=== PATIENT | female | born 1990 | race African-American/Black ===

== ENCOUNTER 2025-07-04 08:33 | Emergency (ER) | payer SELFPAY ==
[2025-07-04 09:11] LABS: #Basophils Less than 0.03 10x3/uL (0.0-0.2); #Eosinophils 0.09 10x3/uL (0.0-0.7); #Monocytes 0.81 10x3/uL (0.11-0.59); #Neutrophils 8.92 10x3/uL (1.40-6.50); %Basophils 0.2 % (0.0-1.0); %Eosinophils 0.8 % (0.0-10.0); %Lymphocytes 12.8 % (21.0-51.0); %Monocytes 7.2 % (0.0-10.0); %Neutrophils 78.7 % (42.0-75.0); Hematocrit 29.7 % (36.0-47.0); Hemoglobin 9.1 g/dL (12.0-16.0); Mean Corpuscular Hemoglobin 26.5 pg (27.0-31.0); Mean Corpuscular Volume 86.3 fL (78.0-98.0); Platelet Count 379 10x3/uL (130-400); Red Blood Cell (RBC) Count 3.44 mill/uL (4.20-5.40); White Blood Cell (WBC) Count 11.32 10x3/uL (4.8-10.8)
[2025-07-04] MEDS ORDERED: Metoclopramide HCl 10 MG (2 mL) VIAL ONE (09:30)
[2025-07-04 09:34] LABS: ALT (SGPT) 20 U/L (Less than 34); AST (SGOT) 24 U/L (11-34); Albumin 3.5 g/dL (3.1-4.5); Alkaline Phosphatase 106 U/L (40-110); Anion Gap 13 mmol/L (10-20); BUN (Urea Nitrogen) 13 mg/dL (7.0-18.7); Bilirubin, Total 0.2 mg/dL (0.3-1.2); Calc. Creatinine Clearance 0 mL/min (70-130); Calcium 9.0 mg/dL (7.8-10.44); Carbon Dioxide 26 mmol/L (22-29); Chloride 104 mmol/L (98-107); Globulin 3.9 g/dL (2.4-3.5); Glucose 117 mg/dL (70-105); Potassium 3.6 mmol/L (3.5-5.1); Sodium 139 mmol/L (136-145)
[2025-07-04 09:42] LABS: Acetaminophen Less than 10 mcg/mL (Less than 10); Salicylate Less than 8.0 mg/dL (Less than 8.0)
[2025-07-04 10:18] LABS: Cocaine Metabolite Screen Negative (Negative); THC/Cannabinoid Screen Negative (Negative); Tricyclic Screen PRELIM POSITIVE (Negative)
[2025-07-04 10:20] LABS: Pregnancy Test - Urine (BHCG) Negative (Negative); Pregu Control Background? CLEAR/WHITE (CLR/WHITE); Pregu Control Bar Appear? YES (CONTROL BAR)
[2025-07-04 10:24] LABS: CAUTI Indications for Culture Pelvic or flank pain; Glucose, Urine (Dipstick) 200 mg/dL (Negative); Leukocyte 250 Leu/uL (Negative); Protein, Urine (Dipstick) Negative (Neg-Trace); RBC/HPF 0-3 HPF (0-3); Specific Gravity, Urine 1.017 (1.002-1.036)
[2025-07-04 10:26] LABS: Bacteria/HPF 1+ HPF (None Seen)
[2025-07-04 10:27] LABS: Urine Culture Reflex Yes Yes
[2025-07-04] MEDS ORDERED: Buprenorphine HCl 2 MG SL TAB ONE (10:57)
== END 2025-07-04 13:26 ==
LOC: ERS 08:33
DX: F11.23 Opioid dependence with withdrawal (principal); R55 Syncope and collapse; R56.9 Unspecified convulsions; I10 Essential (primary) hypertension; E11.9 Type 2 diabetes mellitus without complications
CPT/HCPCS: 70450; 80053; 80306; 80307; 81001; 81025; 83605; 85025; 87086; 93005; 96361; 96365; J0571; J2765

== ENCOUNTER 2025-07-15 08:45 | Emergency (ER) | payer OTHER ==
[2025-07-15 09:23] LABS: Bacteria/HPF None Seen HPF (None Seen); CAUTI Indications for Culture Dysuria,urgency,freq; Glucose, Urine (Dipstick) 100 mg/dL (Negative); Leukocyte Negative Leu/uL (Negative); Protein, Urine (Dipstick) Negative (Neg-Trace); RBC/HPF None Seen HPF (0-3); Specific Gravity, Urine 1.010 (1.002-1.036); WBC/HPF 0-3 HPF (0-3)
[2025-07-15 09:27] LABS: Urine Culture Reflex No No
[2025-07-15 09:29] LABS: #Basophils Less than 0.03 10x3/uL (0.0-0.2); #Eosinophils 0.17 10x3/uL (0.0-0.7); #Monocytes 0.63 10x3/uL (0.11-0.59); #Neutrophils 6.57 10x3/uL (1.40-6.50); %Basophils 0.2 % (0.0-1.0); %Eosinophils 1.9 % (0.0-10.0); %Lymphocytes 16.6 % (21.0-51.0); %Monocytes 7.1 % (0.0-10.0); %Neutrophils 73.8 % (42.0-75.0); Hematocrit 27.9 % (36.0-47.0); Hemoglobin 8.6 g/dL (12.0-16.0); Mean Corpuscular Hemoglobin 26.3 pg (27.0-31.0); Mean Corpuscular Volume 85.3 fL (78.0-98.0); Platelet Count 412 10x3/uL (130-400); Red Blood Cell (RBC) Count 3.27 mill/uL (4.20-5.40); White Blood Cell (WBC) Count 8.91 10x3/uL (4.8-10.8)
[2025-07-15 09:57] LABS: ALT (SGPT) 83 U/L (Less than 34); AST (SGOT) 38 U/L (11-34); Albumin 3.3 g/dL (3.1-4.5); Alkaline Phosphatase 225 U/L (40-110); Anion Gap 14 mmol/L (10-20); BUN (Urea Nitrogen) 15 mg/dL (7.0-18.7); Bilirubin, Total 0.2 mg/dL (0.3-1.2); Calc. Creatinine Clearance 0 mL/min (70-130); Calcium 9.6 mg/dL (7.8-10.44); Carbon Dioxide 26 mmol/L (22-29); Chloride 101 mmol/L (98-107); Globulin 4.1 g/dL (2.4-3.5); Glucose 137 mg/dL (70-105); Potassium 4.2 mmol/L (3.5-5.1); Sodium 137 mmol/L (136-145)
== END 2025-07-15 11:12 ==
LOC: ERS 08:45
DX: R56.9 Unspecified convulsions (principal); D64.9 Anemia, unspecified; I10 Essential (primary) hypertension; E11.43 Type 2 diabetes mellitus with diabetic autonomic (poly)neuropathy; K31.84 Gastroparesis; F17.290 Nicotine dependence, other tobacco product, uncomplicated; R29.700 NIHSS score 0
CPT/HCPCS: 36415; 70450; 71045; 80053; 81001; 85025; 93005

== ENCOUNTER 2025-07-17 21:04 | Emergency (ER) | payer OTHER ==
[2025-07-17 22:13] LABS: Pregnancy Test - Urine (BHCG) Negative (Negative); Pregu Control Background? CLEAR/WHITE (CLR/WHITE); Pregu Control Bar Appear? YES (CONTROL BAR)
[2025-07-17 22:14] LABS: Bacteria/HPF None Seen HPF (None Seen); CAUTI Indications for Culture Alt mental st,lethar; Glucose, Urine (Dipstick) Greater than 1000 mg/dL (Negative); Leukocyte Negative Leu/uL (Negative); Protein, Urine (Dipstick) Negative (Neg-Trace); RBC/HPF 0-3 HPF (0-3); Specific Gravity, Urine 1.015 (1.002-1.036); WBC/HPF 0-3 HPF (0-3)
[2025-07-17 22:19] LABS: Urine Culture Reflex No No
[2025-07-17 22:21] LABS: Cocaine Metabolite Screen Negative (Negative); THC/Cannabinoid Screen Negative (Negative); Tricyclic Screen PRELIM POSITIVE (Negative)
[2025-07-17] MEDS ORDERED: levETIRAcetam 500 MG (5 mL) VIAL ONE (22:39)
[2025-07-17 22:45] LABS: #Basophils Less than 0.03 10x3/uL (0.0-0.2); #Eosinophils 0.06 10x3/uL (0.0-0.7); #Monocytes 0.61 10x3/uL (0.11-0.59); #Neutrophils 8.42 10x3/uL (1.40-6.50); %Basophils 0.2 % (0.0-1.0); %Eosinophils 0.5 % (0.0-10.0); %Lymphocytes 17.6 % (21.0-51.0); %Monocytes 5.5 % (0.0-10.0); %Neutrophils 75.8 % (42.0-75.0); Hematocrit 33.4 % (36.0-47.0); Hemoglobin 10.3 g/dL (12.0-16.0); Mean Corpuscular Hemoglobin 25.7 pg (27.0-31.0); Mean Corpuscular Volume 83.3 fL (78.0-98.0); Platelet Count 533 10x3/uL (130-400); Red Blood Cell (RBC) Count 4.01 mill/uL (4.20-5.40); White Blood Cell (WBC) Count 11.10 10x3/uL (4.8-10.8)
[2025-07-17 23:05] LABS: ALT (SGPT) 55 U/L (Less than 34); AST (SGOT) 50 U/L (11-34); Albumin 4.0 g/dL (3.1-4.5); Alkaline Phosphatase 221 U/L (40-110); Anion Gap 18 mmol/L (10-20); BUN (Urea Nitrogen) 25 mg/dL (7.0-18.7); Bilirubin, Total 0.3 mg/dL (0.3-1.2); Calc. Creatinine Clearance 0 mL/min (70-130); Calcium 9.8 mg/dL (7.8-10.44); Carbon Dioxide 25 mmol/L (22-29); Chloride 98 mmol/L (98-107); Globulin 4.9 g/dL (2.4-3.5); Glucose 279 mg/dL (70-105); Potassium 4.7 mmol/L (3.5-5.1); Sodium 136 mmol/L (136-145)
[2025-07-17] MEDS ORDERED: diphenhydrAMINE 50 MG/ML VIAL ONE (23:12)
== END 2025-07-18 01:00 | disposition home or self-care (01) ==
LOC: ERS 21:04
DX: G40.909 Epilepsy, unspecified, not intractable, without status epilepticus (principal); I10 Essential (primary) hypertension; E11.43 Type 2 diabetes mellitus with diabetic autonomic (poly)neuropathy; K31.84 Gastroparesis; Z79.899 Other long term (current) drug therapy
CPT/HCPCS: 80053; 80306; 81001; 81025; 84146; 85025; 96365; 96367; 96375; J1200; J1953; J2550

== ENCOUNTER 2025-07-19 07:39 | Emergency (ER) | payer OTHER ==
[2025-07-19] MEDS ORDERED: levETIRAcetam 500 MG (5 mL) VIAL ONE ×3 (08:45→12:38)
[2025-07-19 08:50] LABS: Bacteria/HPF None Seen HPF (None Seen); CAUTI Indications for Culture Pelvic or flank pain; Glucose, Urine (Dipstick) Greater than 1000 mg/dL (Negative); Leukocyte Negative Leu/uL (Negative); Protein, Urine (Dipstick) 20 mg/dL (Neg-Trace); RBC/HPF 0-3 HPF (0-3); Specific Gravity, Urine 1.015 (1.002-1.036); WBC/HPF 0-3 HPF (0-3); Yeast-Budding Rare HPF (None Seen)
[2025-07-19 08:52] LABS: Urine Culture Reflex No No
[2025-07-19 10:18] LABS: Cocaine Metabolite Screen Negative (Negative); THC/Cannabinoid Screen Negative (Negative); Tricyclic Screen PRELIM POSITIVE (Negative)
[2025-07-19 12:45] LABS: #Basophils Less than 0.03 10x3/uL (0.0-0.2); #Eosinophils Less than 0.03 10x3/uL (0.0-0.7); #Monocytes 0.55 10x3/uL (0.11-0.59); #Neutrophils 5.60 10x3/uL (1.40-6.50); %Basophils 0.2 % (0.0-1.0); %Eosinophils 0.1 % (0.0-10.0); %Lymphocytes 26.5 % (21.0-51.0); %Monocytes 6.5 % (0.0-10.0); %Neutrophils 66.5 % (42.0-75.0); Hematocrit 31.9 % (36.0-47.0); Hemoglobin 10.0 g/dL (12.0-16.0); Mean Corpuscular Hemoglobin 25.5 pg (27.0-31.0); Mean Corpuscular Volume 81.4 fL (78.0-98.0); Platelet Count 541 10x3/uL (130-400); Red Blood Cell (RBC) Count 3.92 mill/uL (4.20-5.40); White Blood Cell (WBC) Count 8.44 10x3/uL (4.8-10.8)
[2025-07-19 12:57] LABS: BHCG - Serum Negative (NEGATIVE); Pregs Control Background? CLEAR/WHITE (CLR/WHITE); Pregs Control Bar Appear? YES (CONTROL BAR)
[2025-07-19 13:17] LABS: Acetaminophen Less than 10 mcg/mL (Less than 10); Salicylate Less than 8.0 mg/dL (Less than 8.0)
[2025-07-19 13:18] LABS: ALT (SGPT) 38 U/L (Less than 34); AST (SGOT) 44 U/L (11-34); Albumin 3.8 g/dL (3.1-4.5); Alkaline Phosphatase 198 U/L (40-110); Anion Gap 15 mmol/L (10-20); BUN (Urea Nitrogen) 14 mg/dL (7.0-18.7); Bilirubin, Total 0.4 mg/dL (0.3-1.2); Calc. Creatinine Clearance 0 mL/min (70-130); Calcium 9.3 mg/dL (7.8-10.44); Carbon Dioxide 24 mmol/L (22-29); Chloride 96 mmol/L (98-107); Globulin 4.7 g/dL (2.4-3.5); Glucose 235 mg/dL (70-105); Potassium 4.0 mmol/L (3.5-5.1); Sodium 131 mmol/L (136-145)
[2025-07-19] MEDS ORDERED: Acetaminophen 500 MG TAB ONE (14:20)
== END 2025-07-19 20:07 ==
LOC: ERS 07:39
DX: R45.851 Suicidal ideations (principal); I10 Essential (primary) hypertension; E11.43 Type 2 diabetes mellitus with diabetic autonomic (poly)neuropathy; K31.84 Gastroparesis; Z79.899 Other long term (current) drug therapy
CPT/HCPCS: 80053; 80306; 80307; 81001; 84703; 85025; 93005; J1953; Q0162